=== PATIENT | female | born 1980 | race Caucasian/White ===

== ENCOUNTER 2017-09-25 12:07 | Emergency (ER) | payer MEDICAID ==
[~2017-09-25] VITALS: Ht 157.5 cm; Wt 105.7 kg
[2017-09-25 12:15] VITALS: BP 124/66; Ht 157.5 cm; Wt 105.7 kg
[2017-09-25 13:11] LABS: microscopic required? NO
[2017-09-25 13:23] LABS: UA SPECIFIC GRAVITY >=1.030 (1.005-1.035); urine erythrocyte NEGATIVE (NEGATIVE)
== END 2017-09-25 14:50 | disposition home or self-care (01) ==
LOC: ED 12:07
PROVIDERS: Emergency Medicine Emergency Medical Services
DX: R10.13 Epigastric pain (principal); R10.11 Right upper quadrant pain; R11.2 Nausea with vomiting, unspecified; E78.5 Hyperlipidemia, unspecified
CPT/HCPCS: J1885; Q0092

== ENCOUNTER 2017-10-03 10:23 | Emergency (ER) | payer MEDICAID ==
[~2017-10-03] VITALS: Ht 157.5 cm; Wt 104.0 kg
[2017-10-03 10:29] VITALS: Ht 157.5 cm; Wt 104.0 kg
[2017-10-03 11:03] LABS: BASOPHIL % 0.5 % (0-2); PLATELET COUNT 323 x10^3mcL (130-400)
[2017-10-03 11:32] LABS: CALCIUM 8.8 mg/dL (8.5-10.1); CARBON DIOXIDE 28.3 mmol/L (21-32); CHLORIDE SERUM 100 mmol/L (98-107); CREATININE SERUM 0.7 mg/dL (0.6-1.0); GFR1 > 60 mL/min; GLUCOSE SERUM 204 mg/dL (74-106); POTASSIUM SERUM 4.3 mmol/L (3.5-5.1); SODIUM SERUM 135 mmol/L (136-145)
[2017-10-03 11:33] LABS: ALKALINE PHOSPHATASE 111 U/L (46-116); ALT/SGPT 43 U/L (14-59); AST/SGOT 24 U/L (15-37); LIPASE 116 IU/L (73-393); TOTAL PROTEIN, SERUM 7.7 g/dL (6.4-8.2)
[2017-10-03 11:34] LABS: ALBUMIN 3.3 g/dL (3.4-5.0)
[2017-10-03 12:33] VITALS: BP 100/58
== END 2017-10-03 12:33 | disposition home or self-care (01) ==
LOC: ED 10:23
PROVIDERS: Emergency Medicine
DX: R10.11 Right upper quadrant pain (principal); R11.2 Nausea with vomiting, unspecified; E78.5 Hyperlipidemia, unspecified
CPT/HCPCS: J1885; J2405

== ENCOUNTER 2018-03-10 12:48 | Emergency (ER) | payer MEDICAID ==
[~2018-03-10] VITALS: Ht 157.5 cm; Wt 103.9 kg
[2018-03-10 12:51] VITALS: BP 122/71; Ht 157.5 cm; Wt 103.9 kg
== END 2018-03-10 13:58 | disposition home or self-care (01) ==
LOC: ED 12:48
PROC: 3E023NZ Introduction of Analgesics, Hypnotics, Sedatives into Muscle, Percutaneous Approach (ICD-10-PCS; principal; 2018-03-10)
DX: R51 Headache (principal); R19.7 Diarrhea, unspecified; N39.0 Urinary tract infection, site not specified
CPT/HCPCS: J1885; Q0162

== ENCOUNTER 2019-07-14 20:48 | Emergency (ER) | payer MEDICAID ==
[~2019-07-14] VITALS: Ht 157.5 cm; Wt 108.0 kg
[2019-07-14 20:54] VITALS: Ht 157.5 cm; Wt 108.0 kg
[2019-07-14 23:15] VITALS: BP 129/84
== END 2019-07-14 23:15 | disposition home or self-care (01) ==
LOC: ED 20:48
DX: K21.9 Gastro-esophageal reflux disease without esophagitis (principal); E78.5 Hyperlipidemia, unspecified